=== PATIENT | female | born 1975 | race Caucasian/White ===

== ENCOUNTER → 2016-09-13 | Outpatient (CLI) | payer BC ==
--- NOTE | 2016-09-13 12:46 | MAMMOGRAPHY REPORT ---
BILATERAL DIGITAL DIAGNOSTIC MAMMOGRAM TOMOSYNTHESIS WITH CAD: 09/13/2016 CLINICAL HISTORY: 41 year-old woman presents for annual bilateral screening mammography as well as f ollow-up of right breast microcalcifications and a benign appearing circumscribed subcentimeter mass . TECHNIQUE: Bilateral CC and MLO 2-D digital and tomosynthesis images, spot magnification right CC, M L and XCCL views were obtained. Current study was also evaluated with a Computer Aided Detection (C AD) system. COMPARISON: Comparison is made to exams dated: 03/15/2016 ultrasound, 03/15/2016 mammogram, 09/09/2015 mammogram, and 09/03/2015 mammogram - [facility]. BREAST COMPOSITION: The tissue of both breasts is heterogeneously dense, which may obscure small ma sses. FINDINGS: The breast parenchymal pattern is similar to prior mammograms. The previously observed 6 mm mass in the medial right breast is no longer clearly seen on the tomosynthesis images therefore it most likely represented a fluctuating cyst. No new suspicious spiculated or irregular mass, foca l area of architectural distortion or new microcalcifications are seen bilaterally. On the spot magnification views in the lower outer far posterior right breast, a grouping of round a nd punctate microcalcifications is again seen, measuring 15 mm in posterior to anterior dimension. When comparing back to prior spot magnification views, these appear very similar in number and confi guration as the exam performed on 09/09/2015 and most likely represent benign fibrocystic changes. However, longer stability is needed and repeat spot magnification views are again recommended in 12 months. IMPRESSION: ACR-BI-RADS CATEGORY 3: PROBABLY BENIGN 1. There are stable grouped round and punctate microcalcifications in the lower outer posterior righ t breast that appears similar to spot magnification views performed 1 year ago. Longer stability is needed to confirm benignity and repeat spot magnification views of the right breast are recommended in 12 months. 2. A previously observed 6 mm circumscribed mass in the medial right breast is no longer seen, most likely represented a fluctuating cyst. No other suspicious abnormality is identified in the right breast. 3. Stable mammographic appearance of the left breast, without mammographic evidence of malignancy. Also recommend follow up in one year. These results and recommendations were discussed with the patient at the time of the exam. She tent atively scheduled bilateral diagnostic mammograms in one year prior to leaving our department. Approximately 10% of breast cancers are not detected with mammography. A negative mammographic repor t should not delay biopsy if a clinically suggestive mass is present. Marlena Hankins M.D. ay/:09/13/2016 11:50:34 [facility] Nurse: Lela PROCTOR)(Nicole), [facility] letter sent: Follow Up Recommended 3 BI-RADS Code: ACR-BI-RADS Category 3: Probably Benign
== END | disposition home or self-care (01) ==
LOC: C.MAMM 08:05
PROVIDERS: ATTEND Family Medicine
DX: R92.0 Mammographic microcalcification found on diagnostic imaging of breast (principal)

== ENCOUNTER → 2017-06-02 | Outpatient (CLI) | payer BC ==
--- NOTE | 2017-06-02 16:41 | DIAGNOSTIC IMAGING REPORT ---
CHEST 2 VIEWS ROUTINE HISTORY: 42 years-old Female COUGH acute cough COMPARISON: None available TECHNIQUE: PA and lateral views of the chest FINDINGS: The patient is slightly rotated to the left. Sigmoidal scoliosis of the thoracic or lumbar spine. Cardiomediastinal and hilar silhouettes are within normal limits. Mild hyperinflation without pneumothorax, pleural effusion, focal airspace consolidation or overt pulmonary edema. Bones of the chest appear grossly intact. IMPRESSION: No acute cardiopulmonary process. The above report was generated using voice recognition software. It may contain grammatical, syntax or spelling errors. Electronically signed by: Conor Camacho M.D. 06/02/2017 4:39 PM Dictated Date/Time: 06/02/2017 4:38 PM
== END | disposition home or self-care (01) ==
LOC: C.RAD1850 16:19
PROVIDERS: ATTEND Family Medicine
DX: R05 Cough (principal)

== ENCOUNTER → 2017-09-14 | Outpatient (CLI) | payer OTHER ==
--- NOTE | 2017-09-14 15:07 | MAMMOGRAPHY REPORT ---
BILATERAL DIGITAL DIAGNOSTIC MAMMOGRAM TOMOSYNTHESIS WITH CAD: 09/14/2017 CLINICAL HISTORY: 12 month follow-up of right breast calcifications. Due for annual mammography of t he left breast. The patient reports no current complaints. TECHNIQUE: Breast tomosynthesis in addition to standard 2D mammography was performed. Current study was also evaluated with a Computer Aided Detection (CAD) system. Bilateral CC and MLO 2D and tomosyn thesis images and spot magnification right CC and ML views were obtained. COMPARISON: Comparison is made to exams dated: 09/13/2016 mammogram, 03/15/2016 ultrasound, 03/15/2016 mammogram, 09/09/2015 mammogram, 09/03/2015 mammogram - [facility], and 08/10/2013 [facility]. BREAST COMPOSITION: The tissue of both breasts is heterogeneously dense, which may obscure small mas ses. FINDINGS: Spot magnification views of the right breast again demonstrate a small 4 mm cluster of punc perdomo benign-appearing calcifications within the right lower outer quadrant posteriorly. The calcific ations are stable on spot magnification views dating back to at least the August 2015 exam, and are co nsidered benign given the morphology and stability. The remainder of both breasts are stable compared to prior exams, without suspicious masses, calcific ations, or areas of architectural distortion noted. A few other scattered bilateral benign-appearing calcifications are again noted. IMPRESSION: ACR BI-RADS CATEGORY 2: BENIGN Small cluster of punctate calcifications in the right lower outer quadrant is stable dating back to t he August 2015 exam and considered benign given the morphology and long-term stability. There is no m ammographic evidence of malignancy in either breast. A 1 year screening mammogram is recommended. The patient has been verbally notified of the results. Approximately 10% of breast cancers are not detected with mammography. A negative mammographic report should not delay biopsy if a clinically suggestive mass is present. Sara Humphries M.D. /:09/14/2017 08:26:06 [employer] Supervisor: Lela Méndez, [facility] letter sent: Normal 1/2 BI-RADS Code: ACR BI-RADS Category 2: Benign
== END | disposition home or self-care (01) ==
LOC: C.MAMM 08:06
PROVIDERS: ATTEND Physician Assistant
DX: Z09 Encounter for follow-up examination after completed treatment for conditions other than malignant neoplasm (principal); R92.1 Mammographic calcification found on diagnostic imaging of breast